=== PATIENT | male | born 1990 | race Caucasian/White ===

== ENCOUNTER 2019-10-30 10:17 | Emergency (ER) | payer BC ==
[2019-10-30 10:45] VITALS: RESP 18; TEMP 99.3
[2019-10-30] MEDS ORDERED: KETOROLAC 30 MG/ML 1 ML VIAL IVP STA (10:46)
[2019-10-30] MEDS ORDERED: SODIUM CHLORIDE 0.9% 500 ML 500 ML IV ONE (10:46)
[2019-10-30] MEDS ORDERED: SODIUM CHLORIDE 0.9% 1,000 ML IV ONE (10:46)
[2019-10-30] MEDS ORDERED: ONDANSETRON 4 MG/2 ML VIAL IVP STA ×2 (10:47→11:37)
--- NOTE | 2019-10-30 10:50 | ED ---
General Adult HPI - General Chief complaint: Recheck/Abnormal Lab/Rx Stated complaint: Abscessed tooth Time Seen by Provider: 10/30/19 10:36 Source: patient, RN notes reviewed Mode of arrival: ambulatory Limitations: no limitations - History of Present Illness Initial comments: This is a 28-year-old male presents emergency Department chief complaint of fever, dental pain, nausea vomiting shortness of breath. Patient states symptoms really started with dental pain on the left in June he states he is seen by Bladimir who told him he had a redundant tooth left lower aspect and was referred to oral surgeon. He was unable to follow-up secondary to COVID. Patient states that symptoms have not worsened in the last 2 days worse extreme pain, worsening shortness of breath,, fever and nausea vomiting. Patient states denies any problem prior lung disease. He doesn't at days a smoker. Denies any localized abdominal pain states is just very nauseated. Patient has not any recent Tylenol Motrin for his fever. denies Sick contacts. - Related Data Previous Rx's Medication Instructions Recorded Clindamycin HCl 300 mg PO Q6HR #40 cap 10/30/19 Ibuprofen [Motrin] 600 mg PO Q8HR PRN #20 tab 10/30/19 Ondansetron Odt [Zofran Odt] 4 mg PO Q8HR PRN #10 tab 10/30/19 Allergies Allergy/AdvReac Type Severity Reaction Status Date / Time No Known Allergies Allergy Verified 10/30/19 10:28 Review of Systems ROS Statement: Those systems with pertinent positive or pertinent negative responses have been documented in the HPI. ROS Other: All systems not noted in ROS Statement are negative. Past Medical History Past Medical History: No Reported History History of Any Multi-Drug Resistant Organisms: None Reported Past Surgical History: No Surgical Hx Reported Past Psychological History: No Psychological Hx Reported Smoking Status: Current every day smoker Past Alcohol Use History: Occasional Past Drug Use History: Marijuana General Exam Limitations: no limitations General appearance: alert, in no apparent distress Head exam: Present: atraumatic, normocephalic, normal inspection Eye exam: Present: normal appearance, PERRL, EOMI. Absent: scleral icterus, conjunctival injection, periorbital swelling ENT exam: Present: mucous membranes moist, TM's normal bilaterally, normal external ear exam. Absent: normal oropharynx (Impacted molar #17) Neck exam: Present: normal inspection, full ROM. Absent: tenderness, meningismus, lymphadenopathy Respiratory exam: Present: normal lung sounds bilaterally. Absent: respiratory distress, wheezes, rales, rhonchi, stridor Cardiovascular Exam: Present: normal rhythm, tachycardia, normal heart sounds. Absent: systolic murmur, diastolic murmur, rubs, gallop, clicks GI/Abdominal exam: Present: soft, normal bowel sounds. Absent: distended, tenderness, guarding, rebound, rigid Neurological exam: Present: alert, oriented X3, CN II-XII intact Skin exam: Present: warm, dry, intact, normal color. Absent: rash Course Vital Signs 10/30/19 10:25 Temperature 99.3 F Pulse Rate 111 H Respiratory 18 Rate Blood Pressure 127/74 O2 Sat by Pulse 96 Oximetry Medical Decision Making - Medical Decision Making CT shows evidence of dental caries or prior filling was. There are no other bony structure other other findings. X-ray shows possible bronchitis. Patient does not have any persistent cough. Time. Patient will be started on antibiotics to follow-up with oral surgery and return for any worsening symptoms. - Lab Data Result diagrams: 10/30/19 11:19 10/30/19 11:19 Lab Results 10/30/19 10/30/19 10/30/19 Range/Units 11:19 11:19 11:19 WBC 15.9 H (3.8-10.6) k/uL RBC 4.33 (4.30-5.90) m/uL Hgb 13.2 (13.0-17.5) gm/dL Hct 39.3 (39.0-53.0) % MCV 90.7 (80.0-100.0) fL MCH 30.6 (25.0-35.0) pg MCHC 33.7 (31.0-37.0) g/dL RDW 12.4 (11.5-15.5) % Plt Count 345 (150-450) k/uL Neutrophils % 82 % Lymphocytes % 12 % Monocytes % 4 % Eosinophils % 1 % Basophils % 0 % Neutrophils # 13.0 H (1.3-7.7) k/uL Lymphocytes # 1.9 (1.0-4.8) k/uL Monocytes # 0.6 (0-1.0) k/uL Eosinophils # 0.1 (0-0.7) k/uL Basophils # 0.1 (0-0.2) k/uL Sodium 139 (137-145) mmol/L Potassium 3.5 (3.5-5.1) mmol/L Chloride 103 (98-107) mmol/L Carbon Dioxide 27 (22-30) mmol/L Anion Gap 9 mmol/L BUN 3 L (9-20) mg/dL Creatinine 0.84 (0.66-1.25) mg/dL Est GFR (CKD-EPI)AfAm >90 (>60 ml/min/1.73 sqM) Est GFR (CKD-EPI)NonAf >90 (>60 ml/min/1.73 sqM) Glucose 93 (74-99) mg/dL Plasma Lactic Acid Nuno 0.8 (0.7-2.0) mmol/L Calcium 9.2 (8.4-10.2) mg/dL Total Bilirubin 0.6 (0.2-1.3) mg/dL AST 21 (17-59) U/L ALT 17 (4-49) U/L Alkaline Phosphatase 85 (38-126) U/L Total Protein 6.9 (6.3-8.2) g/dL Albumin 4.2 (3.5-5.0) g/dL Disposition Clinical Impression: Dental infection, Fever, Nausea & vomiting Disposition: HOME SELF-CARE Condition: Stable Instructions (If sedation given, give patient instructions): Toothache (ED) Additional Instructions: Please return to the Emergency Department if symptoms worsen or any other concerns. Prescriptions: Clindamycin HCl 300 mg PO Q6HR #40 cap Ibuprofen [Motrin] 600 mg PO Q8HR PRN #20 tab PRN Reason: Pain Ondansetron Odt [Zofran Odt] 4 mg PO Q8HR PRN #10 tab PRN Reason: Nausea Is patient prescribed a controlled substance at d/c from ED?: No Referrals: Eamon Thacker DO [Primary Care Provider] - 1-2 days Elie Sanchez DDS [STAFF PHYSICIAN] - 1-2 days Time of Disposition: 12:32
[2019-10-30 11:36] LABS: ALT 17 U/L (4-49); AST 21 U/L (17-59); African American GFR (CKD) >90 (>60 ml/min/1.73 sqM); Albumin 4.2 g/dL (3.5-5.0); Alkaline Phosphatase 85 U/L (38-126); Anion Gap 9 mmol/L; Blood Urea Nitrogen 3 mg/dL (9-20); Calcium 9.2 mg/dL (8.4-10.2); Carbon Dioxide 27 mmol/L (22-30); Chloride 103 mmol/L (98-107); Glucose 93 mg/dL (74-99); Non-African American GFR(CKD) >90 (>60 ml/min/1.73 sqM); Potassium 3.5 mmol/L (3.5-5.1); Sodium 139 mmol/L (137-145); Total Bilirubin 0.6 mg/dL (0.2-1.3); Total Protein 6.9 g/dL (6.3-8.2)
[2019-10-30] MEDS ORDERED: MORPHINE SULFATE 4 MG/ML SYRINGE IVP STA (11:37)
[2019-10-30 11:38] LABS: Basophils # (A) 0.1 k/uL (0-0.2); Basophils % (A) 0 %; Eosinophils # (A) 0.1 k/uL (0-0.7); Eosinophils % (A) 1 %; HCT 39.3 % (39.0-53.0); HGB 13.2 gm/dL (13.0-17.5); Lymphocytes # (A) 1.9 k/uL (1.0-4.8); Lymphocytes % (A) 12 %; MCH 30.6 pg (25.0-35.0); MCHC 33.7 g/dL (31.0-37.0); MCV 90.7 fL (80.0-100.0); Monocytes # (A) 0.6 k/uL (0-1.0); Monocytes % (A) 4 %; Neutrophils % (A) 82 %; Platelet Count 345 k/uL (150-450); RBC 4.33 m/uL (4.30-5.90); RDW 12.4 % (11.5-15.5); WBC 15.9 k/uL (3.8-10.6)
--- NOTE | 2019-10-30 11:55 | XR ---
EXAMINATION TYPE: XR chest 2V DATE OF EXAM: 10/30/2019 COMPARISON: NONE TECHNIQUE: PA and lateral views submitted. HISTORY: Fever and cough FINDINGS: The lungs are clear and there is no pneumothorax, pleural effusion, or focal pneumonia. Heart size normal. No overt failure. Mild prominence to central interstitium. IMPRESSION: 1. Mild central interstitial prominence could be seen with a mild pneumonitis or bronchitis. Correlat e clinically..
--- NOTE | 2019-10-30 12:19 | CT ---
EXAMINATION TYPE: CT soft tissue neck w con DATE OF EXAM: 10/30/2019 HISTORY: Left sided dental infection, facial pain and swelling. COMPARISON: NONE CT DLP: 388 mGycm. Automated Exposure Control for Dose Reduction was Utilized. TECHNIQUE: CT scan of the neck is performed with IV Contrast, patient injected with 100 ml mL of Iso christina 300, axial images are obtained, coronal and sagittal reformatted images are reviewed. FINDINGS: Airway: Some retained secretions in the valleculae and tonsillar lymphoid hypertrophy at the lung bas e.. Parotid/submandibular glands: No gross abnormality seen. Carotid/Vascular Structures: No significant plaque or stenosis carotid bulb level. Osseous Structures: Slight levoconvex scoliotic curvature centered upper thoracic spine. There is dis c space narrowing with disc calcification and some ossific fusion at the C3-C4 level Other: Multiple cavitary fillings involving the maxillary and mandibular teeth bilaterally particular ly the premolar and molar teeth. Suspicious lucency through cavitary filling left third molar tooth c oronal image 27 corresponds to patient's history confirmed sagittal image 44. There is no extension i nto the room or bone. No suspicious focal fluid collection or drainable abscess. There are prominent but subcentimeter lymph nodes seen throughout the neck bilaterally. No definitive abnormal greater th an 1 cm adenopathy. IMPRESSION: Recurrent left lower molar dental cavity at site of prior cavitary filling. No extension into the root canal or bone. No suspicious fluid collection or abscess. Airway is patent.
[2019-10-30] MEDS ORDERED: ACET/COD 300 MG/30 MG STARTER PACK 6 TAB BTL PO STA (12:32)
[2019-10-30 12:51] VITALS: BP 123/67; PULSE 87
== END 2019-10-30 12:54 | disposition home or self-care (01) ==
LOC: EC 10:17
DX: K04.7 Periapical abscess without sinus (principal); R11.2 Nausea with vomiting, unspecified; F17.200 Nicotine dependence, unspecified, uncomplicated; Z20.828 Contact with and (suspected) exposure to other viral communicable diseases
CPT/HCPCS: 36415; 80053; 83605; 85025; 71046; 70491; 96374; 96375 ×2; 96376; 96361; 99284; U0003; J2270; J2405; J1885; Q9967